=== PATIENT | male | born 1965 | race Caucasian/White ===

== ENCOUNTER 2017-01-13 08:29 | Emergency (ER) | payer OTHER ==
[~2017-01-13] VITALS: Ht 170.2 cm; Wt 86.2 kg
[2017-01-13] MEDS ORDERED: IOHEXOL 300 MG/ML 100ML BOTTLE IJ ONE (08:51)
[2017-01-13] MEDS ORDERED: KETOROLAC TROMETH 30 MG/ML 1ML VIAL ONE (09:02)
[2017-01-13 10:12] LABS: Basophils # (auto) 0.1 uL; Basophils % (auto) 1.1 % (0.0-2.0); Eosinophils # (auto) 0.3 uL; Eosinophils % (auto) 2.9 % (0.0-7.0); Hematocrit 45.9 % (41.0-53.0); Hemoglobin 15.4 g/dL (13.5-17.5); Lymphocytes # (auto) 1.4 uL; Lymphocytes % (auto) 16.3 % (10.0-50.0); Mean Corpuscular Hemoglobin 30.8 pg (28.0-32.0); Mean Corpuscular Hgb Conc. 33.6 g/dL (32.0-36.0); Mean Corpuscular Volume 91.7 fL (80.0-100.0); Mean Platelet Volume 7.8 fL (6.9-10.8); Monocytes # (auto) 0.9 uL; Monocytes % (auto) 10.6 % (0.0-12.0); Neutrophils % (auto) 69.1 % (37.0-80.0); Platelet Count (auto) 238 10^3/uL (140-450); Red Cell Distribution Width 14.9 % (11.8-14.3); White Blood Cell 8.7 10^3/uL (4.4-10.8)
[2017-01-13 10:32] LABS: Albumin 3.1 g/dL (3.4-5.0); Alkaline Phosphatase 123 U/L (45-117); Anion Gap 6 (5-15); Aspartate Aminotransferase 32 U/L (15-37); BUN/Creatinine Ratio 16.7; Bilirubin, Total 0.5 mg/dL (0.2-1.0); Blood Urea Nitrogen 18 mg/dL (7-18); Calcium 8.3 mg/dL (8.5-10.1); Carbon Dioxide 23 mmol/L (21-32); Chloride 108 mmol/L (98-107); GFR African American 93 mL/min; GFR Non-African American 77 mL/min; Glucose 120 mg/dL (74-106); Potassium 3.7 mmol/L (3.5-5.1); Sodium 137 mmol/L (136-145); Total Protein 6.8 g/dL (6.4-8.2)
[2017-01-13 15:44] VITALS: BP 141/89
[2017-01-20] MEDS ORDERED: KETOROLAC TROMETH 30 MG/ML 1ML VIAL IV ONE (15:15)
== END 2017-01-13 16:04 | disposition short-term general hospital (02) ==
LOC: EDBD 08:29 → ER 08:29
DX: S82.202A Unspecified fracture of shaft of left tibia, initial encounter for closed fracture (principal); I50.9 Heart failure, unspecified; J44.9 Chronic obstructive pulmonary disease, unspecified; Z88.0 Allergy status to penicillin; Z88.6 Allergy status to analgesic agent; V03.99XA Pedestrian with other conveyance injured in collision with car, pick-up truck or van, unspecified whether traffic or nontraffic accident, initial encounter; Y93.89 Activity, other specified; Y92.89 Other specified places as the place of occurrence of the external cause; Y99.8 Other external cause status; Z59.0 Homelessness
CPT/HCPCS: 29505; 36415; 70450; 72125; 73700; 74178; 80053; 84484; 85025; 93005; 93970; 96374; 99285; J1885; Q9967

== ENCOUNTER 2017-01-18 17:59 | Emergency (ER) | payer OTHER ==
[~2017-01-18] VITALS: Ht 170.2 cm; Wt 81.6 kg
[2017-01-18 18:53] LABS: Basophils # (auto) 0.1 uL; Basophils % (auto) 0.8 % (0.0-2.0); Eosinophils # (auto) 0.2 uL; Eosinophils % (auto) 1.9 % (0.0-7.0); Hematocrit 38.7 % (41.0-53.0); Hemoglobin 13.3 g/dL (13.5-17.5); Lymphocytes # (auto) 2.3 uL; Lymphocytes % (auto) 25.9 % (10.0-50.0); Mean Corpuscular Hemoglobin 31.3 pg (28.0-32.0); Mean Corpuscular Hgb Conc. 34.4 g/dL (32.0-36.0); Mean Corpuscular Volume 90.9 fL (80.0-100.0); Mean Platelet Volume 7.5 fL (6.9-10.8); Monocytes # (auto) 1.2 uL; Neutrophils # (auto) 5.1 uL; Neutrophils % (auto) 57.4 % (37.0-80.0); Nucleated Red Blood Cells % 0.1 %; Platelet Count (auto) 294 10^3/uL (140-450); Red Cell Distribution Width 14.8 % (11.8-14.3); White Blood Cell 8.8 10^3/uL (4.4-10.8)
[2017-01-18 19:13] LABS: Albumin 3.1 g/dL (3.4-5.0); Bilirubin, Total 0.9 mg/dL (0.2-1.0); Calcium 8.1 mg/dL (8.5-10.1); Potassium 3.7 mmol/L (3.5-5.1); Total Protein 7.3 g/dL (6.4-8.2)
[2017-01-18] MEDS ORDERED: HYDROcodone-ACET 7.5/325MG TAB PO ONE (23:15)
[2017-01-19 00:10] VITALS: BP 148/89
== END 2017-01-19 00:08 | disposition home or self-care (01) ==
LOC: EDBD 17:59 → ER 17:59
DX: S86.912A Strain of unspecified muscle(s) and tendon(s) at lower leg level, left leg, initial encounter (principal); S86.911A Strain of unspecified muscle(s) and tendon(s) at lower leg level, right leg, initial encounter; J45.909 Unspecified asthma, uncomplicated; I50.9 Heart failure, unspecified; Z59.0 Homelessness; Z88.0 Allergy status to penicillin; Z88.6 Allergy status to analgesic agent; X58.XXXA Exposure to other specified factors, initial encounter; Y93.89 Activity, other specified; Y99.8 Other external cause status; Y92.89 Other specified places as the place of occurrence of the external cause
CPT/HCPCS: 36415; 73590; 80053; 85025

== ENCOUNTER 2017-02-06 15:25 | Emergency (ER) | payer OTHER ==
[~2017-02-06] VITALS: Ht 177.8 cm; Wt 84.8 kg
[2017-02-06 17:10] LABS: Basophils # (auto) 0 uL; Basophils % (auto) 0.3 % (0.0-2.0); Eosinophils # (auto) 0.3 uL; Eosinophils % (auto) 4.1 % (0.0-7.0); Hematocrit 38.8 % (41.0-53.0); Hemoglobin 12.9 g/dL (13.5-17.5); Lymphocytes # (auto) 1.6 uL; Lymphocytes % (auto) 22.3 % (10.0-50.0); Mean Corpuscular Hemoglobin 30.4 pg (28.0-32.0); Mean Corpuscular Hgb Conc. 33.1 g/dL (32.0-36.0); Mean Corpuscular Volume 91.8 fL (80.0-100.0); Mean Platelet Volume 7.1 fL (6.9-10.8); Monocytes # (auto) 0.9 uL; Monocytes % (auto) 12.4 % (0.0-12.0); Neutrophils # (auto) 4.5 uL; Neutrophils % (auto) 60.9 % (37.0-80.0); Nucleated Red Blood Cells % 0.1 %; Platelet Count (auto) 410 10^3/uL (140-450); White Blood Cell 7.3 10^3/uL (4.4-10.8)
[2017-02-06 17:27] LABS: Albumin 2.4 g/dL (3.4-5.0); BUN/Creatinine Ratio 19.3; Calcium 7.3 mg/dL (8.5-10.1); Potassium 3.9 mmol/L (3.5-5.1)
[2017-02-06 17:29] LABS: Bilirubin, Total 0.4 mg/dL (0.2-1.0); Total Protein 6.1 g/dL (6.4-8.2)
[2017-02-06] MEDS ORDERED: PHENYTOIN IV DILANTIN 1,000 MG in SODIUM CHL 0.9% 250 ML IV ONE (18:00)
[2017-02-06 19:22] VITALS: BP 94/62
== END 2017-02-06 20:23 | disposition home or self-care (01) ==
LOC: ER 15:25 → EDBD 15:25 → ER 20:23
DX: G40.909 Epilepsy, unspecified, not intractable, without status epilepticus (principal); J44.9 Chronic obstructive pulmonary disease, unspecified; I11.0 Hypertensive heart disease with heart failure; I50.9 Heart failure, unspecified; E78.5 Hyperlipidemia, unspecified
CPT/HCPCS: 36415; 80053; 80185; 85025; 94761; 96365; 99284; J1165; J7050

== ENCOUNTER 2018-08-31 21:24 | Emergency (ER) | payer OTHER ==
[~2018-08-31] VITALS: Ht 170.2 cm; Wt 78.5 kg
[2018-08-31] MEDS ORDERED: cloNIDine HCL 0.1 MG TAB PO ONE ×2 (21:45)
[2018-09-01 03:54] VITALS: BP 146/86
== END 2018-09-01 04:18 | disposition home or self-care (01) ==
LOC: ER 21:28
DX: S46.912A Strain of unspecified muscle, fascia and tendon at shoulder and upper arm level, left arm, initial encounter (principal); S66.912A Strain of unspecified muscle, fascia and tendon at wrist and hand level, left hand, initial encounter; I11.0 Hypertensive heart disease with heart failure; I50.9 Heart failure, unspecified; J44.9 Chronic obstructive pulmonary disease, unspecified; E78.5 Hyperlipidemia, unspecified; F17.210 Nicotine dependence, cigarettes, uncomplicated; F12.10 Cannabis abuse, uncomplicated; Z88.0 Allergy status to penicillin; Z88.6 Allergy status to analgesic agent; W19.XXXA Unspecified fall, initial encounter; Y93.89 Activity, other specified; Y92.89 Other specified places as the place of occurrence of the external cause; Y99.8 Other external cause status
CPT/HCPCS: 73000; 73080; 73090; 73130

== ENCOUNTER → 2019-10-17 | Emergency (ER) | payer OTHER ==
[~2019-10-17] VITALS: Ht 165.1 cm; Wt 72.6 kg
[~2019-10-17] MED LIST: IOHEXOL 300 MG/ML 100ML BOTTLE IJ ONE; carBAMazepine 200 MG TAB PO ONE
[2019-10-17 22:31] LABS: Basophils # (auto) 0.1 10 ^3/uL (0-0.2); Basophils % (auto) 1.1 % (0.0-2.0); Eosinophils # (auto) 0.1 10 ^3/uL (0-0.8); Eosinophils % (auto) 1.8 % (0.0-7.0); Hematocrit 46.6 % (41.0-53.0); Hemoglobin 15.5 g/dL (13.5-17.5); Lymphocytes # (auto) 2.9 10 ^3/uL (0.4-5.4); Lymphocytes % (auto) 38.1 % (10.0-50.0); Mean Corpuscular Hemoglobin 30.6 pg (28.0-32.0); Mean Corpuscular Hgb Conc. 33.3 g/dL (32.0-36.0); Mean Corpuscular Volume 91.9 fL (80.0-100.0); Monocytes # (auto) 0.7 10 ^3/uL (0-1.3); Monocytes % (auto) 9.7 % (0.0-12.0); Neutrophils # (auto) 3.7 10 ^3/uL (1.6-8.6); Neutrophils % (auto) 49.3 % (37.0-80.0); Nucleated Red Blood Cells % 0.1 %; Platelet Count (auto) 342 10^3/uL (140-450); Red Blood Cells 5.07 10^6/uL (4.5-5.90); Red Cell Distribution Width 15.1 % (11.8-14.3); White Blood Cell 7.6 10^3/uL (4.4-10.8)
[2019-10-17 22:42] LABS: Chloride 108 mmol/L (98-107); Potassium 3.7 mmol/L (3.5-5.1); Sodium 138 mmol/L (136-145)
[2019-10-17 22:50] LABS: INR 0.99 (0.9-1.15); Partial Thromboplastin Time 24.1 sec (23.64-32.05)
[2019-10-17 23:03] LABS: Alanine Aminotransferase 61 U/L (16-61); Albumin 3.6 g/dL (3.4-5.0); Alkaline Phosphatase 112 U/L (45-117); Anion Gap 5 (5-15); Aspartate Aminotransferase 37 U/L (15-37); BUN/Creatinine Ratio 18.2; Bilirubin, Total 0.4 mg/dL (0.2-1.0); Blood Urea Nitrogen 26 mg/dL (7-18); Calcium 8.7 mg/dL (8.5-10.1); Carbon Dioxide 25 mmol/L (21-32); GFR African American 66 mL/min; GFR Non-African American 55 mL/min; Glucose 90 mg/dL (74-106); Total Protein 7.9 g/dL (6.4-8.2)
[2019-10-18 05:43] VITALS: BP 112/69
== END | disposition home or self-care (01) ==
LOC: ER 20:03
DX: G40.409 Other generalized epilepsy and epileptic syndromes, not intractable, without status epilepticus (principal); R22.1 Localized swelling, mass and lump, neck; I11.0 Hypertensive heart disease with heart failure; I50.9 Heart failure, unspecified; J44.9 Chronic obstructive pulmonary disease, unspecified; E78.5 Hyperlipidemia, unspecified
CPT/HCPCS: 36415; 70450; 70491; 80053; 84484; 85025; 85610; 85730

== ENCOUNTER 2021-05-19 23:03 | Emergency (ER) | payer OTHER ==
[~2021-05-19] VITALS: Ht 170.2 cm; Wt 73.9 kg
[2021-05-20] MEDS ORDERED: MAGNESIUM CITRATE SOLUTION 300 ML BTL PO ONE (05:00)
[2021-05-20 06:12] VITALS: BP 125/52
== END 2021-05-20 12:08 | disposition home or self-care (01) ==
LOC: EDBD 23:03 → ER 23:11
DX: K59.00 Constipation, unspecified (principal); I11.0 Hypertensive heart disease with heart failure; I50.9 Heart failure, unspecified; J44.9 Chronic obstructive pulmonary disease, unspecified; E78.5 Hyperlipidemia, unspecified; F17.210 Nicotine dependence, cigarettes, uncomplicated; Z88.0 Allergy status to penicillin; Z88.5 Allergy status to narcotic agent

== ENCOUNTER 2021-06-02 18:18 | Inpatient (IN) | payer OTHER ==
[~2021-06-02] VITALS: Ht 170.2 cm; Wt 76.8 kg
[2021-06-02] MEDS ORDERED: methylPREDNISolone SOD SUCC 125 MG/2 ML VL IV ONE (19:00)
[2021-06-02] MEDS ORDERED: ALBUTEROL SULF 2.5 MG/0.5ML(0.5%) NEB SOLN NEB ONE (19:00)
[2021-06-02] MEDS ORDERED: IPRATROPIUM BROM 0.5 MG/2.5ML INH SOL NEB ONE (19:00)
[2021-06-02 20:28] LABS: Basophils # (auto) 0.1 10 ^3/uL (0-0.2); Basophils % (auto) 0.8 % (0.0-2.0); Eosinophils # (auto) 0 10 ^3/uL (0-0.8); Hematocrit 42.1 % (41.0-53.0); Hemoglobin 14.1 g/dL (13.5-17.5); Lymphocytes # (auto) 1.1 10 ^3/uL (0.4-5.4); Lymphocytes % (auto) 9.6 % (10.0-50.0); Mean Corpuscular Hemoglobin 30.1 pg (28.0-32.0); Mean Corpuscular Hgb Conc. 33.5 g/dL (32.0-36.0); Mean Corpuscular Volume 89.9 fL (80.0-100.0); Monocytes # (auto) 1.2 10 ^3/uL (0-1.3); Monocytes % (auto) 10.7 % (0.0-12.0); Neutrophils # (auto) 9.2 10 ^3/uL (1.6-8.6); Neutrophils % (auto) 78.9 % (37.0-80.0); Nucleated Red Blood Cells % 0.1 %; Red Blood Cells 4.69 10^6/uL (4.5-5.90); Red Cell Distribution Width 16.5 % (11.8-14.3); White Blood Cell 11.6 10^3/uL (4.4-10.8)
[2021-06-02] MEDS ORDERED: NITROGLYCERIN 0.4MG/HR TOPICAL PATCH TD ONE (20:30)
[2021-06-02] MEDS ORDERED: FUROSEMIDE 100 MG/10ML VIAL IV ONE (20:30)
[2021-06-02 20:43] LABS: Albumin 3.3 g/dL (3.4-5.0); Calcium 8.4 mg/dL (8.5-10.1); Magnesium 2.7 mg/dL (1.6-2.6); Potassium 3.9 mmol/L (3.5-5.1)
[2021-06-02 20:50] LABS: BUN/Creatinine Ratio 15.8; Bilirubin, Total 1.7 mg/dL (0.2-1.0); Total Protein 7.3 g/dL (6.4-8.2)
[2021-06-02] MEDS ORDERED: ASPirin 325 MG TAB PO ONE (21:30)
[2021-06-02 22:00] VITALS: BP 158/102
[2021-06-02 22:36] LABS: Urine Bacteria NONE SEEN /hpf (None Seen); Urine Blood Negative /uL (Negative); Urine Specific Gravity 1.015 (1.001-1.035); Urine WBC <1 /hpf (0 - 3)
[2021-06-02] MEDS ORDERED: CLOPIDOGREL 300 MG TAB PO ONE (23:00)
[2021-06-02] MEDS ORDERED: MORPHINE SULFATE INJECTION 2 MG/ML SYRG IV PRN (23:00)
[2021-06-02] MEDS ORDERED: HEPARIN SODIUM (PORCINE) 5000 UNITS/ML 1ML VIAL IV ONE (23:00)
[2021-06-02] MEDS ORDERED: ACETAMINOPHEN 500 MG TAB PO PRN (23:00)
[2021-06-02] MEDS ORDERED: NITROGLYCERIN 0.4 MG SL TAB SL PRN (23:00)
[2021-06-02] MEDS ORDERED: ONDANSETRON HCL 4 MG/2 ML VIAL IV PRN (23:00)
[2021-06-02] MEDS ORDERED: MORPHINE SULFATE 4 MG/ML SYR/VIAL IV PRN (23:00)
[2021-06-02] MEDS ORDERED: ATORVASTATIN 20 MG TAB PO ONE (23:00)
[2021-06-02] MEDS ORDERED: ACETAMINOPHEN 325 MG TAB PO PRN (23:00)
[2021-06-02] MEDS ORDERED: HEPARIN DRIP/D5W 100UNITS/ML 250 ML IV SCH (23:00)
[2021-06-02] MEDS ORDERED: NITROGLYCERIN 2% OINT 1GM PKG TD PRN (23:00)
[2021-06-02] MEDS ORDERED: METOPROLOL TARTRATE 1MG/1ML-5ML VIAL IV ONE (23:47)
[2021-06-03] VITALS (7 sets, daily range): BP systolic 95–119; BP diastolic 60–83
[2021-06-03 00:09] LABS: INR 1.27 (0.9-1.15); Partial Thromboplastin Time 24.2 sec (23.6-33.0)
[2021-06-03] MEDS ORDERED: levETIRAcetam 500 MG TAB PO ONE (00:15)
[2021-06-03] MEDS ORDERED: METOPROLOL TARTRATE 25 MG TAB PO ONE (00:15)
[2021-06-03] MEDS ORDERED: METOPROLOL TARTRATE 1MG/1ML-5ML VIAL IV ONE (00:15)
[2021-06-03] MEDS ORDERED: guaiFENesin 200 MG/10 ML UD GT PRN (03:45)
[2021-06-03 05:42] LABS: Basophils # (auto) 0 10 ^3/uL (0-0.2); Basophils % (auto) 0.4 % (0.0-2.0); Eosinophils # (auto) 0 10 ^3/uL (0-0.8); Hematocrit 38.3 % (41.0-53.0); Hemoglobin 13.2 g/dL (13.5-17.5); Lymphocytes # (auto) 0.6 10 ^3/uL (0.4-5.4); Lymphocytes % (auto) 6.1 % (10.0-50.0); Mean Corpuscular Hemoglobin 30.9 pg (28.0-32.0); Mean Corpuscular Hgb Conc. 34.5 g/dL (32.0-36.0); Mean Corpuscular Volume 89.6 fL (80.0-100.0); Monocytes # (auto) 0.7 10 ^3/uL (0-1.3); Monocytes % (auto) 7.5 % (0.0-12.0); Neutrophils # (auto) 8.6 10 ^3/uL (1.6-8.6); Red Blood Cells 4.28 10^6/uL (4.5-5.90); Red Cell Distribution Width 16.7 % (11.8-14.3)
[2021-06-03 06:04] LABS: Albumin 2.8 g/dL (3.4-5.0); Calcium 8.3 mg/dL (8.5-10.1); Magnesium 2.6 mg/dL (1.6-2.6)
[2021-06-03 06:08] LABS: BUN/Creatinine Ratio 15.9; Bilirubin, Total 1.6 mg/dL (0.2-1.0); Total Protein 6.4 g/dL (6.4-8.2)
[2021-06-03 09:22] LABS: INR 1.32 (0.9-1.15); Partial Thromboplastin Time 36.6 sec (23.6-33.0)
[2021-06-03] MEDS ORDERED: NITR0.4D11 (09:33)
[2021-06-03] MEDS ORDERED: ASPI-487 PO (09:33)
[2021-06-03] MEDS ORDERED: CLON0.1T PO (09:33)
[2021-06-03] MEDS ORDERED: LEVE500T3 PO (09:33)
[2021-06-03] MEDS ORDERED: MET25T PO (09:33)
[2021-06-03] MEDS ORDERED: levETIRAcetam 500 MG TAB PO SCH (10:00)
[2021-06-03] MEDS ORDERED: PANTOPRAZOLE 40 MG TAB PO SCH (10:00)
[2021-06-03] MEDS ORDERED: CLOPIDOGREL BISULFATE 75 MG TAB PO SCH (10:00)
[2021-06-03] MEDS: FUROSEMIDE 40 MG/4 ML VIAL IV SCH ×2 (10:26→18:00)
[2021-06-03] MEDS: DOCUSATE SOD 100 MG CAP PO SCH (10:26)
[2021-06-03] MEDS: ASPirin 81 mg TAB PO SCH (10:26)
[2021-06-03] MEDS: METOPROLOL TARTRATE 25 MG TAB PO SCH ×2 (10:27→21:30)
[2021-06-03] MEDS: NICOTINE 21MG/24 HR TOPICAL PATCH TD SCH (10:28)
[2021-06-03] MEDS: levETIRAcetam 500 MG TAB PO SCH ×2 (10:28→21:29)
[2021-06-03] MEDS ORDERED: PNEUMOCOCCAL VACC POLYS 25 MCG/0.5 ML VIAL IM ONE (10:45)
[2021-06-03] MEDS ORDERED: HEPARIN DRIP/D5W 100UNITS/ML 250 ML IV SCH (11:00)
[2021-06-03] MEDS ORDERED: ALUM & MAG HYDROX-SIMETH LIQ(MAALOX) 30 ML PO PRN (14:45)
[2021-06-03 15:23] LABS: Alcohol, Urine < 3.0 mg/dL (0-10); Amphetamine Screen, Urine POSITIVE (NEGATIVE); Barbiturate Scree,Urine NEGATIVE (NEGATIVE); Benzodiazephine Screen, Urine NEGATIVE (NEGATIVE); Cannabinoid Screen, Urine NEGATIVE (NEGATIVE); Cocaine Screen, Urine NEGATIVE (NEGATIVE)
[2021-06-03 15:30] LABS: Opiate Scree,Urine NEGATIVE (NEGATIVE); Phencyclidine Screen, Urine NEGATIVE (NEGATIVE)
[2021-06-03] MEDS: guaiFENesin 200 MG/10 ML UD PO PRN ×2 (15:55→23:26)
[2021-06-03] MEDS: DOBUTamine 1000MCG/ML 250 ML IV SCH (15:55)
[2021-06-03] MEDS: ACETAMINOPHEN 325 MG TAB PO PRN (20:27)
[2021-06-03] MEDS ORDERED: ATORVASTATIN 20 MG TAB PO SCH (22:00)
[2021-06-04 02:49] LABS: Urine Bacteria NONE SEEN /hpf (None Seen); Urine Blood Negative /uL (Negative); Urine Hyaline Cast FEW /lpf (0 - 2); Urine Specific Gravity 1.014 (1.001-1.035); Urine WBC 1 /hpf (0 - 3)
[2021-06-04 05:00] VITALS: BP 112/70
[2021-06-04] MEDS: FUROSEMIDE 40 MG/4 ML VIAL IV SCH (05:41)
[2021-06-04 06:19] LABS: Basophils # (auto) 0 10 ^3/uL (0-0.2); Basophils % (auto) 0.1 % (0.0-2.0); Eosinophils # (auto) 0 10 ^3/uL (0-0.8); Hematocrit 35.4 % (41.0-53.0); Hemoglobin 12.6 g/dL (13.5-17.5); Lymphocytes # (auto) 1.1 10 ^3/uL (0.4-5.4); Lymphocytes % (auto) 9.7 % (10.0-50.0); Mean Corpuscular Hemoglobin 31.6 pg (28.0-32.0); Mean Corpuscular Hgb Conc. 35.7 g/dL (32.0-36.0); Mean Corpuscular Volume 88.5 fL (80.0-100.0); Monocytes # (auto) 1.3 10 ^3/uL (0-1.3); Monocytes % (auto) 11.1 % (0.0-12.0); Neutrophils # (auto) 9.2 10 ^3/uL (1.6-8.6); Neutrophils % (auto) 79.1 % (37.0-80.0); Nucleated Red Blood Cells % 0.1 %; Red Cell Distribution Width 16.9 % (11.8-14.3); White Blood Cell 11.6 10^3/uL (4.4-10.8)
[2021-06-04 06:40] LABS: Potassium 3.7 mmol/L (3.5-5.1)
[2021-06-04 06:46] LABS: Albumin 2.7 g/dL (3.4-5.0); BUN/Creatinine Ratio 19.8; Calcium 8.2 mg/dL (8.5-10.1)
[2021-06-04 06:48] LABS: Bilirubin, Total 0.9 mg/dL (0.2-1.0); Total Protein 6.2 g/dL (6.4-8.2)
[2021-06-04 08:00] VITALS: BP 115/86
[2021-06-04 09:00] VITALS: BP 109/83
[2021-06-04] MEDS: ASPirin 81 mg TAB PO SCH (09:13)
[2021-06-04] MEDS: levETIRAcetam 500 MG TAB PO SCH ×2 (09:13→21:55)
[2021-06-04] MEDS: METOPROLOL TARTRATE 25 MG TAB PO SCH (09:14)
[2021-06-04] MEDS: ENOXAPARIN SOD 30 MG/0.3 ML SYRINGE SC SCH (09:14)
[2021-06-04] MEDS: guaiFENesin 200 MG/10 ML UD PO PRN ×2 (09:15→21:46)
[2021-06-04] MEDS: NICOTINE 21MG/24 HR TOPICAL PATCH TD SCH (09:15)
[2021-06-04] MEDS ORDERED: POLYETHYLENE GLYCOL 17 GM PWDR PO PRN (09:30)
[2021-06-04] MEDS ORDERED: ASPI-487 PO (09:47)
[2021-06-04] MEDS: DOCUSATE SOD 100 MG CAP PO SCH (10:00)
[2021-06-04] MEDS: DOBUTamine 1000MCG/ML 250 ML IV SCH (10:51)
[2021-06-04 12:18] LABS: Salicylate < 1.7 mg/dL (2.8-20.0)
[2021-06-04 12:20] LABS: Acetaminophen 2.8 ug/mL (10-30)
[2021-06-04 14:29] VITALS: BP 121/85
[2021-06-04 17:00] VITALS: BP 151/97
[2021-06-04] MEDS: CARVEDILOL 3.125 MG TAB PO SCH (21:55)
[2021-06-04 22:00] VITALS: BP 137/97
[2021-06-04] MEDS ORDERED: SENNA 8.6 MG TAB PO PRN (22:00)
[2021-06-05] VITALS (7 sets, daily range): BP systolic 117–167; BP diastolic 88–115
[2021-06-05] MEDS: guaiFENesin 200 MG/10 ML UD PO PRN (01:08)
[2021-06-05] MEDS: ACETAMINOPHEN 325 MG TAB PO PRN (01:29)
[2021-06-05] MEDS ORDERED: guaiFENesin-DM 100/10mg/5ml SYR PO PRN (02:15)
[2021-06-05] MEDS: DOBUTamine 1000MCG/ML 250 ML IV SCH (07:51)
[2021-06-05] MEDS: IPRATROPIUM BROM 0.5 MG/2.5ML INH SOL NEB PRN ×2 (08:16→18:09)
[2021-06-05] MEDS: ALBUTEROL SULF 2.5 MG/0.5ML(0.5%) NEB SOLN NEB PRN ×2 (08:16→18:09)
[2021-06-05] MEDS: DOCUSATE SOD 100 MG CAP PO SCH (10:00)
[2021-06-05 10:16] LABS: Albumin 2.5 g/dL (3.4-5.0); Potassium 3.8 mmol/L (3.5-5.1)
[2021-06-05 10:19] LABS: BUN/Creatinine Ratio 23.9; Bilirubin, Total 0.9 mg/dL (0.2-1.0); Total Protein 6.2 g/dL (6.4-8.2)
[2021-06-05] MEDS: ASPirin 81 mg TAB PO SCH (10:19)
[2021-06-05] MEDS: levETIRAcetam 500 MG TAB PO SCH ×2 (10:20→20:51)
[2021-06-05] MEDS: ENOXAPARIN SOD 30 MG/0.3 ML SYRINGE SC SCH (10:20)
[2021-06-05] MEDS: CARVEDILOL 3.125 MG TAB PO SCH (10:20)
[2021-06-05] MEDS: NICOTINE 21MG/24 HR TOPICAL PATCH TD SCH (10:21)
[2021-06-05 10:56] LABS: Basophils # (auto) 0 10 ^3/uL (0-0.2); Basophils % (auto) 0.3 % (0.0-2.0); Eosinophils # (auto) 0 10 ^3/uL (0-0.8); Eosinophils % (auto) 0.1 % (0.0-7.0); Hematocrit 38.4 % (41.0-53.0); Hemoglobin 12.9 g/dL (13.5-17.5); Lymphocytes # (auto) 0.9 10 ^3/uL (0.4-5.4); Lymphocytes % (auto) 10.2 % (10.0-50.0); Mean Corpuscular Hemoglobin 30.4 pg (28.0-32.0); Mean Corpuscular Hgb Conc. 33.7 g/dL (32.0-36.0); Mean Corpuscular Volume 90.1 fL (80.0-100.0); Monocytes # (auto) 1.2 10 ^3/uL (0-1.3); Monocytes % (auto) 12.7 % (0.0-12.0); Neutrophils # (auto) 7.1 10 ^3/uL (1.6-8.6); Neutrophils % (auto) 76.7 % (37.0-80.0); Nucleated Red Blood Cells % 0.1 %; Red Blood Cells 4.26 10^6/uL (4.5-5.90); Red Cell Distribution Width 16.8 % (11.8-14.3); White Blood Cell 9.2 10^3/uL (4.4-10.8)
[2021-06-05] MEDS ORDERED: CARVEDILOL 12.5 MG TAB PO ONE (13:15)
[2021-06-05] MEDS: guaiFENesin-CODEINE Liq 5 ML UD PO PRN ×2 (16:47→21:47)
[2021-06-05] MEDS: CARVEDILOL 12.5 MG TAB PO SCH (20:51)
[2021-06-05] MEDS ORDERED: hydrALAZINE HCL 20 MG/ML VL IV ONE (22:00)
[2021-06-05] MEDS ORDERED: FUROSEMIDE 20 MG/2 ML VIAL IV ONE (22:00)
[2021-06-05] MEDS ORDERED: AZITHROMYCIN 500MG/ 250ML 250 ML IV SCH (23:00)
[2021-06-05] MEDS ORDERED: cefTRIAXone 1GM/50ML D5W 50 ML IV SCH (23:15)
[2021-06-06] MEDS: FUROSEMIDE 40 MG/4 ML VIAL IV SCH ×3 (00:03→17:58)
[2021-06-06] MEDS ORDERED: levoFLOXacin 750MG 150 ML IV SCH ×2 (01:15→08:00)
[2021-06-06] MEDS: guaiFENesin-CODEINE Liq 5 ML UD PO PRN ×3 (03:42→23:02)
[2021-06-06 05:13] VITALS: BP 130/90
[2021-06-06] MEDS: DOBUTamine 1000MCG/ML 250 ML IV SCH (05:52)
[2021-06-06 09:17] VITALS: BP 156/106
[2021-06-06 09:26] LABS: Albumin 2.5 g/dL (3.4-5.0); Calcium 8.2 mg/dL (8.5-10.1); Potassium 3.2 mmol/L (3.5-5.1)
[2021-06-06 09:30] LABS: BUN/Creatinine Ratio 27.4; Bilirubin, Total 1.2 mg/dL (0.2-1.0); Total Protein 6.4 g/dL (6.4-8.2)
[2021-06-06] MEDS: DOCUSATE SOD 100 MG CAP PO SCH (09:57)
[2021-06-06] MEDS: ASPirin 81 mg TAB PO SCH (09:57)
[2021-06-06] MEDS: levETIRAcetam 500 MG TAB PO SCH ×2 (09:58→21:13)
[2021-06-06] MEDS: CARVEDILOL 12.5 MG TAB PO SCH ×2 (09:58→21:13)
[2021-06-06] MEDS: amLODIPine BESYLATE 5 MG TAB PO SCH (09:59)
[2021-06-06] MEDS ORDERED: ENOXAPARIN SOD 40 MG/0.4 ML SYRINGE SC SCH (10:00)
[2021-06-06] MEDS ORDERED: AZITHROMYCIN 500MG/ 250ML 250 ML IV SCH (10:00)
[2021-06-06] MEDS: NICOTINE 21MG/24 HR TOPICAL PATCH TD SCH (10:00)
[2021-06-06] MEDS ORDERED: ENOXAPARIN SOD 30 MG/0.3 ML SYRINGE SC ONE (10:00)
[2021-06-06] MEDS ORDERED: POTASSIUM EFFERVESENT TAB 25 MEQ PO ONE (11:30)
[2021-06-06 12:55] VITALS: BP 147/81
[2021-06-06 17:00] VITALS: BP 114/56
[2021-06-06 22:00] VITALS: BP 181/125
[2021-06-06 22:30] VITALS: BP 127/95
[2021-06-06] MEDS ORDERED: LABETALOL HCL 5 MG/ML 4ML SYRINGE IV PRN (22:30)
[2021-06-07] MEDS: DOBUTamine 1000MCG/ML 250 ML IV SCH ×2 (02:21→22:31)
[2021-06-07 05:00] VITALS: BP 167/104
[2021-06-07] MEDS: FUROSEMIDE 40 MG/4 ML VIAL IV SCH ×2 (05:24→17:53)
[2021-06-07] MEDS ORDERED: ENOXAPARIN SOD 40 MG/0.4 ML SYRINGE SC SCH (10:00)
[2021-06-07] MEDS: ASPirin 81 mg TAB PO SCH (10:20)
[2021-06-07] MEDS: DOCUSATE SOD 100 MG CAP PO SCH (10:20)
[2021-06-07] MEDS: CARVEDILOL 12.5 MG TAB PO SCH ×2 (10:21→21:59)
[2021-06-07] MEDS: levETIRAcetam 500 MG TAB PO SCH ×2 (10:21→21:59)
[2021-06-07] MEDS: amLODIPine BESYLATE 5 MG TAB PO SCH (10:22)
[2021-06-07] MEDS: NICOTINE 21MG/24 HR TOPICAL PATCH TD SCH (10:23)
[2021-06-07 10:26] VITALS: BP 142/90
[2021-06-07 10:27] LABS: Basophils # (auto) 0.1 10 ^3/uL (0-0.2); Basophils % (auto) 0.7 % (0.0-2.0); Eosinophils # (auto) 0 10 ^3/uL (0-0.8); Eosinophils % (auto) 0.3 % (0.0-7.0); Hematocrit 39.1 % (41.0-53.0); Hemoglobin 13.2 g/dL (13.5-17.5); Lymphocytes % (auto) 8.2 % (10.0-50.0); Mean Corpuscular Hemoglobin 30.3 pg (28.0-32.0); Mean Corpuscular Hgb Conc. 33.9 g/dL (32.0-36.0); Mean Corpuscular Volume 89.2 fL (80.0-100.0); Monocytes # (auto) 1.7 10 ^3/uL (0-1.3); Monocytes % (auto) 14.8 % (0.0-12.0); Nucleated Red Blood Cells % 0.1 %; Red Blood Cells 4.38 10^6/uL (4.5-5.90); White Blood Cell 11.8 10^3/uL (4.4-10.8)
[2021-06-07 11:00] LABS: Albumin 2.2 g/dL (3.4-5.0); Calcium 7.9 mg/dL (8.5-10.1)
[2021-06-07 11:03] LABS: BUN/Creatinine Ratio 27.3; Bilirubin, Total 1.4 mg/dL (0.2-1.0); Total Protein 5.9 g/dL (6.4-8.2)
[2021-06-07] MEDS ORDERED: POTASSIUM CHL 20 Meq TABLET PO ONE (13:30)
[2021-06-07 14:30] VITALS: BP 139/85
[2021-06-07] MEDS ORDERED: FURO40TA4 PO (15:02)
[2021-06-07] MEDS ORDERED: CAR125T PO (15:02)
[2021-06-07] MEDS ORDERED: NIC21P TD (15:02)
[2021-06-07 22:00] VITALS: BP 146/90
[2021-06-08 04:54] VITALS: BP 142/92
[2021-06-08] MEDS: FUROSEMIDE 40 MG/4 ML VIAL IV SCH ×2 (06:25→18:05)
[2021-06-08 08:27] VITALS: BP 140/106
[2021-06-08 09:34] LABS: INR 1.2 (0.9-1.15); Partial Thromboplastin Time 27.6 sec (23.6-33.0)
[2021-06-08] MEDS: DOCUSATE SOD 100 MG CAP PO SCH (09:52)
[2021-06-08 09:53] LABS: BUN/Creatinine Ratio 25.7; Calcium 8.3 mg/dL (8.5-10.1)
[2021-06-08] MEDS: CARVEDILOL 12.5 MG TAB PO SCH ×2 (09:54→22:07)
[2021-06-08] MEDS: levETIRAcetam 500 MG TAB PO SCH ×2 (09:56→22:07)
[2021-06-08] MEDS: NICOTINE 21MG/24 HR TOPICAL PATCH TD SCH (09:57)
[2021-06-08] MEDS: amLODIPine BESYLATE 5 MG TAB PO SCH (09:57)
[2021-06-08] MEDS: ASPirin 81 mg TAB PO SCH (10:00)
[2021-06-08 10:03] LABS: Potassium 2.8 mmol/L (3.5-5.1)
[2021-06-08] MEDS ORDERED: POTASSIUM CHL 20 Meq TABLET PO ONE (10:30)
[2021-06-08] MEDS: THROAT LOZENGES(CEPASTAT) MT PRN ×2 (10:54→21:00)
[2021-06-08 12:46] VITALS: BP 132/74
[2021-06-08 16:03] VITALS: BP 151/103
[2021-06-08] MEDS: DOBUTamine 1000MCG/ML 250 ML IV SCH (18:06)
[2021-06-08] MEDS: ALBUTEROL SULF 2.5 MG/0.5ML(0.5%) NEB SOLN NEB PRN (19:53)
[2021-06-08] MEDS: IPRATROPIUM BROM 0.5 MG/2.5ML INH SOL NEB PRN (19:53)
[2021-06-08 22:00] VITALS: BP 130/98
[2021-06-08] MEDS: POTASSIUM CHL 20 Meq TABLET PO SCH (22:07)
[2021-06-08 22:54] VITALS: BP 130/98
[2021-06-09] MEDS: THROAT LOZENGES(CEPASTAT) MT PRN (00:01)
[2021-06-09] MEDS: guaiFENesin-CODEINE Liq 5 ML UD PO PRN (00:02)
[2021-06-09 05:00] VITALS: BP 140/95
[2021-06-09] MEDS: FUROSEMIDE 40 MG/4 ML VIAL IV SCH (06:16)
[2021-06-09 08:00] VITALS: BP 143/92
[2021-06-09] MEDS: ASPirin 81 mg TAB PO SCH (09:47)
[2021-06-09] MEDS: DOCUSATE SOD 100 MG CAP PO SCH (09:48)
[2021-06-09] MEDS: CARVEDILOL 12.5 MG TAB PO SCH ×2 (09:49→22:00)
[2021-06-09] MEDS: levETIRAcetam 500 MG TAB PO SCH ×2 (09:49→22:00)
[2021-06-09] MEDS: POTASSIUM CHL 20 Meq TABLET PO SCH ×2 (09:50→22:00)
[2021-06-09] MEDS: amLODIPine BESYLATE 5 MG TAB PO SCH (09:50)
[2021-06-09] MEDS: NICOTINE 21MG/24 HR TOPICAL PATCH TD SCH (09:51)
[2021-06-09 09:56] LABS: BUN/Creatinine Ratio 23.8; Calcium 7.9 mg/dL (8.5-10.1); Potassium 3.2 mmol/L (3.5-5.1)
[2021-06-09 12:00] VITALS: BP 142/93
[2021-06-09 15:53] VITALS: BP 143/71
[2021-06-09 16:00] VITALS: BP 143/79
[2021-06-09] MEDS ORDERED: levoFLOXacin 250 MG TAB PO ONE (17:15)
[2021-06-09] MEDS: FUROSEMIDE 40 MG TAB PO SCH (17:43)
[2021-06-09 22:00] VITALS: BP 159/96
[2021-06-10 05:00] VITALS: BP 159/107
[2021-06-10] MEDS: FUROSEMIDE 40 MG TAB PO SCH ×2 (05:57→18:23)
[2021-06-10 08:00] VITALS: BP 146/87
[2021-06-10] MEDS: ASPirin 81 mg TAB PO SCH (09:37)
[2021-06-10] MEDS: DOCUSATE SOD 100 MG CAP PO SCH (09:38)
[2021-06-10] MEDS: hydrALAZINE HCL 25 MG TAB PO SCH ×2 (09:38→22:51)
[2021-06-10] MEDS: POTASSIUM CHL 20 Meq TABLET PO SCH ×2 (09:39→22:53)
[2021-06-10] MEDS: CARVEDILOL 12.5 MG TAB PO SCH ×2 (09:39→22:52)
[2021-06-10] MEDS: levETIRAcetam 500 MG TAB PO SCH ×2 (09:39→22:52)
[2021-06-10] MEDS: NICOTINE 21MG/24 HR TOPICAL PATCH TD SCH (09:40)
[2021-06-10] MEDS: ISOSORBIDE MONONITRATE ER 60 MG TAB PO SCH (10:41)
[2021-06-10 12:00] VITALS: BP 140/85
[2021-06-10 16:00] VITALS: BP 143/87
[2021-06-10 20:00] VITALS: BP 146/87
[2021-06-10 21:31] VITALS: BP 147/97
[2021-06-11 05:00] VITALS: BP 135/81
[2021-06-11] MEDS: FUROSEMIDE 40 MG TAB PO SCH (05:27)
[2021-06-11 08:00] VITALS: BP 132/87
[2021-06-11 08:23] VITALS: BP 132/87
[2021-06-11] MEDS: ASPirin 81 mg TAB PO SCH (09:46)
[2021-06-11] MEDS: CARVEDILOL 12.5 MG TAB PO SCH (09:47)
[2021-06-11] MEDS: hydrALAZINE HCL 25 MG TAB PO SCH (09:47)
[2021-06-11] MEDS: DOCUSATE SOD 100 MG CAP PO SCH (09:47)
[2021-06-11] MEDS: POTASSIUM CHL 20 Meq TABLET PO SCH (09:48)
[2021-06-11] MEDS: levETIRAcetam 500 MG TAB PO SCH (09:48)
[2021-06-11] MEDS: NICOTINE 21MG/24 HR TOPICAL PATCH TD SCH (09:49)
[2021-06-11] MEDS ORDERED: levoFLOXacin 250 MG TAB PO SCH (10:00)
[2021-06-11 12:29] VITALS: BP 122/79
[2021-06-11] MEDS: ISOSORBIDE MONONITRATE ER 60 MG TAB PO SCH (12:40)
== END 2021-06-11 15:50 | disposition home or self-care (01) | DRG 194 ==
LOC: ER 18:18 → TELE 22:58 → TELE-CENTR 23:32
PROVIDERS: ADMIT Internal Medicine; ATTEND Internal Medicine
PROC: 3E0234Z Introduction of Serum, Toxoid and Vaccine into Muscle, Percutaneous Approach (ICD-10-PCS; 2021-06-03)
PROC: 0W993ZX Drainage of Right Pleural Cavity, Percutaneous Approach, Diagnostic (ICD-10-PCS; principal; 2021-06-09)
DX: I13.0 Hypertensive heart and chronic kidney disease with heart failure and stage 1 through stage 4 chronic kidney disease, or unspecified chronic kidney disease (principal); J96.00 Acute respiratory failure, unspecified whether with hypoxia or hypercapnia; I21.A1 Myocardial infarction type 2; I27.20 Pulmonary hypertension, unspecified; J18.9 Pneumonia, unspecified organism; J91.8 Pleural effusion in other conditions classified elsewhere; I42.7 Cardiomyopathy due to drug and external agent; I50.43 Acute on chronic combined systolic (congestive) and diastolic (congestive) heart failure; N17.9 Acute kidney failure, unspecified; J44.0 Chronic obstructive pulmonary disease with (acute) lower respiratory infection; J44.1 Chronic obstructive pulmonary disease with (acute) exacerbation; I89.0 Lymphedema, not elsewhere classified; K21.9 Gastro-esophageal reflux disease without esophagitis; Z68.28 Body mass index [BMI] 28.0-28.9, adult; F15.10 Other stimulant abuse, uncomplicated; E66.3 Overweight; E78.5 Hyperlipidemia, unspecified; F17.210 Nicotine dependence, cigarettes, uncomplicated; Z20.822 Contact with and (suspected) exposure to COVID-19; G40.909 Epilepsy, unspecified, not intractable, without status epilepticus; F19.10 Other psychoactive substance abuse, uncomplicated; E87.6 Hypokalemia; H54.8 Legal blindness, as defined in USA; N18.30 Chronic kidney disease, stage 3 unspecified; K59.00 Constipation, unspecified; Z83.3 Family history of diabetes mellitus; Z91.19 Patient's noncompliance with other medical treatment and regimen; Z86.718 Personal history of other venous thrombosis and embolism; Z88.5 Allergy status to narcotic agent; Z88.0 Allergy status to penicillin; Z23 Encounter for immunization
CPT/HCPCS: 36415; 36600; 71045; 76604; 76705; 76775; 76942; 80048; 80053; 80061; 80074; 80307; 80329; 81001; 82040; 82805; 83615; 83735; 83880; 84484; 85025; 85379; 85610; 85730; 87040; 87081; 89051; 93005; 93306; 93970; 94640; 96365; 96375; 99291; G0378; J1956; J2405; J3490

== ENCOUNTER 2021-06-30 20:57 | Emergency (ER) | payer OTHER ==
[~2021-06-30] VITALS: Ht 172.7 cm; Wt 71.2 kg
[~2021-06-30 20:57] MED LIST changes: +ASPI-487 PO; +CAR125T PO; +FURO40TA4 PO; -IOHEXOL 300 MG/ML 100ML BOTTLE IJ ONE; +LEVE500T3 PO; +NIC21P TD; -carBAMazepine 200 MG TAB PO ONE
[2021-06-30 22:45] LABS: Basophils # (auto) 0.2 10 ^3/uL (0-0.2); Nucleated Red Blood Cells % 0.2 %; White Blood Cell 8.9 10^3/uL (4.4-10.8)
[2021-06-30 22:46] LABS: Basophils % (auto) 2.2 % (0.0-2.0); Eosinophils # (auto) 0.1 10 ^3/uL (0-0.8); Eosinophils % (auto) 1.2 % (0.0-7.0); Hematocrit 44.5 % (41.0-53.0); Hemoglobin 14.9 g/dL (13.5-17.5); Mean Corpuscular Hemoglobin 29.6 pg (28.0-32.0); Mean Corpuscular Hgb Conc. 33.6 g/dL (32.0-36.0); Mean Corpuscular Volume 88.2 fL (80.0-100.0); Monocytes # (auto) 0.7 10 ^3/uL (0-1.3); Neutrophils # (auto) 5.9 10 ^3/uL (1.6-8.6); Neutrophils % (auto) 66.6 % (37.0-80.0); Red Blood Cells 5.05 10^6/uL (4.5-5.90); Red Cell Distribution Width 17.4 % (11.8-14.3)
[2021-06-30 22:47] LABS: Potassium 4.2 mmol/L (3.5-5.1)
[2021-06-30 22:51] LABS: Albumin 2.4 g/dL (3.4-5.0); BUN/Creatinine Ratio 16.6; Calcium 8.6 mg/dL (8.5-10.1)
[2021-06-30 22:56] LABS: Bilirubin, Total 0.4 mg/dL (0.2-1.0); Total Protein 7.7 g/dL (6.4-8.2)
[2021-07-01 06:30] VITALS: BP 143/96
== END 2021-07-01 08:40 | disposition home or self-care (01) ==
LOC: ER 20:59
DX: J44.1 Chronic obstructive pulmonary disease with (acute) exacerbation (principal); R06.00 Dyspnea, unspecified
CPT/HCPCS: 36415; 70450; 71045; 80053; 84484; 85025; 93005